=== PATIENT | female | born 2000 | race Caucasian/White ===

== ENCOUNTER 2021-07-19 10:02 | Inpatient (IN) | payer MEDICAID, OTHER ==
[~2021-07-19] VITALS: Ht 149.9 cm; Wt 71.7 kg
[2021-07-19] MEDS ORDERED: METHYLERGONOVINE MALEATE 0.2 MG/ML IM PRN (10:45)
[2021-07-19] MEDS ORDERED: CARBOPROST TROMETHAMINE 250 MCG/ML AMPUL IM PRN (10:45)
[2021-07-19] MEDS ORDERED: NALOXONE HCL 0.4 MG/ML 1ML VIAL IM PRN (10:45)
[2021-07-19] MEDS ORDERED: BUTORPHANOL TARTRATE 2 MG/ML VIAL IV PRN (10:45)
[2021-07-19] MEDS ORDERED: LIDOCAINE HCL 1% 20ML VIAL (Pyxis) INJ INFIL SCH (10:45)
[2021-07-19] MEDS ORDERED: MISOPROSTOL 100MCG TABLET VG SCH (10:45)
[2021-07-19 11:54] LABS: BASOPHILS % 0.3 % (0.0-2.0); EOSINOPHILS % 0.9 % (0.0-5.0); HEMOGLOBIN. 14.5 g/dL (12.0-16.0); LYMPHOCYTES % 25.8 % (20.0-50.0); MEAN CORPUSCULAR VOLUME 92.2 fL (81.0-99.0); MEAN PLATELET VOLUME 9.5 fl (7.4-10.4); MONOCYTES % 7.7 % (2.0-8.0); NEUTROPHILS % 65.3 % (40.0-76.0); PLATELET 170 x1000/uL (130-400); RED BLOOD CELL COUNT 4.55 mill/uL (4.2-5.4); RED CELL DISTRIBUTION WIDTH 14.6 % (11.6-14.6)
[2021-07-19 12:35] LABS: INR 0.9; PARTIAL THROMBOPLASTIN TIME 29.3 sec (23.4-31.0); PROTHROMBIN TIME 9.9 sec (9.6-11.0)
[2021-07-19 13:00] LABS: CLARITY URINE CLOUDY (CLEAR); COLOR URINE YELLOW (YELLOW); KETONES URINE NEGATIVE (NEGATIVE); LEUKOCYTE ESTERASE URINE 3+ (NEGATIVE); NITRITE URINE NEGATIVE (NEGATIVE); OCCULT BLOOD URINE 1+ (NEGATIVE); PROTEIN URINE TRACE (NEGATIVE); SPECIFIC GRAVITY URINE 1.015 (1.005-1.030); UROBILINOGEN URINE 0.2 E.U./dL (0.2-1.0)
[2021-07-19 13:06] LABS: HEPATITIS B SURFACE ANTIGEN NEGATIVE
[2021-07-19 13:08] LABS: *BENZODIAZEPINES SCREEN URINE NEGATIVE (NEGATIVE)
[2021-07-19 13:09] LABS: *AMPHETAMINES SCREEN URINE NEGATIVE (NEGATIVE); CANNABINOID URINE SCREEN NEGATIVE (NEGATIVE); METHADONE URINE SCREEN NEGATIVE (NEGATIVE); OPIATES URINE SCREEN NEGATIVE (NEGATIVE); PHENCYCLIDINE URINE SCREEN NEGATIVE (NEGATIVE)
[2021-07-19 13:18] LABS: *COCAINE SCREEN URINE NEGATIVE (NEGATIVE)
[2021-07-19] MEDS: DEXT 5%/LR + PITOCIN 20UNITS/L 1,000 ML IV SCH (13:18)
[2021-07-19 13:19] LABS: *BARBITURATES SCREEN URINE NEGATIVE (NEGATIVE)
[2021-07-19] MEDS: LACTATED RINGERS 1,000 ML IV SCH ×2 (13:19→21:14)
[2021-07-20] MEDS ORDERED: ONDANSETRON HCL 4MG/2ML INJ IV PRN (01:30)
[2021-07-20] MEDS ORDERED: ROPIVACAINE HCL/PF EPIDURAL 200 ML EP SCH (07:30)
[2021-07-20] MEDS ORDERED: INFLUENZA VACCINE 05/PF 0.5 ML SYRINGE IM ONE (09:00)
[2021-07-20] MEDS: DEXT 5%/LR + PITOCIN 20UNITS/L 1,000 ML IV SCH (10:45)
[2021-07-20] MEDS ORDERED: BENZOCAINE/LANOLIN/ALOE VERA SPRAY TOP PRN (11:15)
[2021-07-20] MEDS ORDERED: DIPHENHYDRAMINE 25MG CAPSULE PO PRN (11:15)
[2021-07-20] MEDS ORDERED: DEXT 5%/LR + PITOCIN 20UNITS/L 1,000 ML IV SCH (11:15)
[2021-07-20] MEDS ORDERED: BISACODYL 10MG SUPP PR PRN (11:15)
[2021-07-20] MEDS ORDERED: ACETAMINOPHEN WITH CODEINE 300/30MG TABLET PO PRN ×2 (11:15)
[2021-07-20] MEDS ORDERED: LANOLIN OINT 7GM TUBE TOP PRN (11:15)
[2021-07-20] MEDS ORDERED: GLYCERIN/WITCH HAZEL LEAF MEDICATED PAD TOP PRN (11:15)
[2021-07-20] MEDS ORDERED: HEMORRHOIDAL SUPP PR PRN (11:15)
[2021-07-20] MEDS ORDERED: IBUPROFEN 400MG TABLET PO PRN (11:15)
[2021-07-20 13:30] VITALS: BP 122/56
[2021-07-20 14:30] VITALS: BP 130/65
[2021-07-20 15:58] VITALS: BP 132/66
[2021-07-20 19:20] VITALS: BP 135/80
[2021-07-20] MEDS: DOCUSATE SODIUM 100MG CAPSULE PO SCH (21:33)
[2021-07-20] MEDS: SIMETHICONE 80MG TABLET CHEW PO SCH (21:33)
[2021-07-20] MEDS: MAGNESIUM/ALUMINUM HYDROXIDE/SIMETHICONE 30ML UDC PO SCH (21:33)
[2021-07-21 04:00] VITALS: BP 109/69
[2021-07-21 06:22] LABS: BASOPHILS % 0.2 % (0.0-2.0); EOSINOPHILS % 0.6 % (0.0-5.0); HEMATOCRIT. 34.3 % (36.0-48.0); HEMOGLOBIN. 11.8 g/dL (12.0-16.0); LYMPHOCYTES % 21.6 % (20.0-50.0); MEAN CORPUSCULAR VOLUME 93.3 fL (81.0-99.0); MONOCYTES % 6.4 % (2.0-8.0); NEUTROPHILS % 71.2 % (40.0-76.0); PLATELET 155 x1000/uL (130-400); RED BLOOD CELL COUNT 3.68 mill/uL (4.2-5.4); RED CELL DISTRIBUTION WIDTH 14.3 % (11.6-14.6)
[2021-07-21 07:30] VITALS: BP 112/54
[2021-07-21] MEDS: MAGNESIUM/ALUMINUM HYDROXIDE/SIMETHICONE 30ML UDC PO SCH ×2 (08:51→21:28)
[2021-07-21] MEDS: PRENATAL VIT/FE FUMARATE/FA TABLET PO SCH (08:51)
[2021-07-21] MEDS: FERROUS SULFATE 325MG TABLET PO SCH (08:51)
[2021-07-21] MEDS: SIMETHICONE 80MG TABLET CHEW PO SCH ×2 (08:52→21:29)
[2021-07-21 19:30] VITALS: BP 107/67
[2021-07-21] MEDS: DOCUSATE SODIUM 100MG CAPSULE PO SCH (21:28)
[2021-07-22 04:00] VITALS: BP 103/69
[2021-07-22 08:00] VITALS: BP 118/71
[2021-07-22] MEDS ORDERED: TETANUS, DIPHTHERIA, PERTUSSIS VAC/PF 0.5ML (>10YR OLD) IM ONE (09:00)
[2021-07-22] MEDS: SIMETHICONE 80MG TABLET CHEW PO SCH (09:20)
[2021-07-22] MEDS: PRENATAL VIT/FE FUMARATE/FA TABLET PO SCH (09:21)
[2021-07-22] MEDS: MAGNESIUM/ALUMINUM HYDROXIDE/SIMETHICONE 30ML UDC PO SCH (09:21)
[2021-07-22] MEDS: FERROUS SULFATE 325MG TABLET PO SCH (09:21)
[2021-07-22 11:25] LABS: HEMATOCRIT 34.8 % (36.0-48.0); HEMOGLOBIN 12.3 g/dL (12.0-16.0); MEAN CORPUSCULAR HEMOGLOBIN 32.8 pg (28.0-32.0); MEAN CORPUSCULAR VOLUME 92.5 fL (81.0-99.0); PLATELET 199 x1000/uL (130-400); RED BLOOD CELL COUNT 3.77 mill/uL (4.2-5.4); RED CELL DISTRIBUTION WIDTH 14.1 % (11.6-14.6)
== END 2021-07-22 12:40 | disposition home or self-care (01) | DRG 560 ==
LOC: 8 EST LDRP 10:02 → OBSVTOIN 10:02 → 8EST 07-20 12:58
PROVIDERS: ADMIT Obstetrics & Gynecology; ATTEND Obstetrics & Gynecology
PROC: 10E0XZZ Delivery of Products of Conception, External Approach (ICD-10-PCS; principal; 2021-07-20)
PROC: 0HQ9XZZ Repair Perineum Skin, External Approach (ICD-10-PCS; 2021-07-20)
DX: O48.0 Post-term pregnancy (principal); Z37.0 Single live birth; O69.81X0 Labor and delivery complicated by cord around neck, without compression, not applicable or unspecified; Z3A.40 40 weeks gestation of pregnancy; O77.0 Labor and delivery complicated by meconium in amniotic fluid; O70.0 First degree perineal laceration during delivery
CPT/HCPCS: 36415; 76805; 76818; 80305; 81003; 85025; 85027; 86592; 86703; 86762; 86850; 86900; 87340; 90686; 90715; 99281; C1726; J2590; J2795; J7120